=== PATIENT | female | born 1970 | race Caucasian/White ===

== ENCOUNTER → 2022-10-19 | Emergency (ER) | payer OTHER ==
[~2022-10-19] MED LIST: ACETAMINOPHEN 80 MG CHEW/MELT (TYLENOL) PO ONE; TETANUS & DIPHTHERIA TOX,ADULT 0.5 ML (TENIVAC) IM ONE
== END ==
LOC: ER 10:18
DX: R07.9 Chest pain, unspecified (principal)
CPT/HCPCS: 90714